=== PATIENT | male | born 1980 | race Caucasian/White ===

== ENCOUNTER 2016-06-21 05:18 | Day surgery (SDC) | payer OTHER ==
[2016-06-20 17:14] VITALS: Ht 182.9 cm; Wt 60.2 kg
[~2016-06-21] VITALS: Ht 182.9 cm; Wt 60.2 kg
[2016-06-21] VITALS (12 sets, daily range): BP systolic 101–125; BP diastolic 57–81; PULSE 50–75; RESP 12–26
[2016-06-21 06:39] LABS: ADD SCAN DIFF NO
[2016-06-21 06:43] LABS: ABNORMAL IP MESSAGE 1; BASOPHIL # 0.1 10^3/ul (0.0-0.1); BASOPHILS % 0.7 % (0.0-2.0); EOSINOPHILS # 0.5 10^3/ul (0.0-0.5); EOSINOPHILS % 7.1 % (0.0-7.0); HEMATOCRIT 39.1 % (42.0-52.0); LYMPHOCYTES # 2.9 10^3/ul (0.8-2.9); MEAN CORPUSCULAR HEMOGLOBIN 19.5 pg (29.0-33.0); MEAN CORPUSCULAR HGB CONC 28.1 g/dl (32.0-37.0); MEAN CORPUSCULAR VOLUME 69.2 fl (82.0-101.0); MONOCYTE # 0.6 10^3/ul (0.3-0.9); MONOCYTES % 8.2 % (0.0-11.0); NEUTROPHIL # 3.3 10^3/ul (1.6-7.5); NEUTROPHILS % 44.7 % (39.0-77.0); PLATELET COUNT 255 10^3/UL (140-415); RED BLOOD COUNT 5.65 10^6/ul (4.70-6.10); RED CELL DISTRIBUTION WIDTH 21.8 % (11.5-14.5); WHITE BLOOD COUNT 7.4 10^3/ul (4.8-10.8)
[2016-06-21] MEDS ORDERED: BUPIVACAINE 0.25%/EPI (SDV) 30 ML INJ ONE ×2 (06:51→08:06)
[2016-06-21] MEDS ORDERED: ROCURONIUM 50 MG INJ ONE (07:00)
[2016-06-21] MEDS ORDERED: CEFAZOLIN 1 GM INJ ONE (07:00)
[2016-06-21] MEDS ORDERED: SEVOFLURANE 15 MIN ONE (07:00)
[2016-06-21] MEDS ORDERED: ONDANSETRON 4 MG INJ ONE (07:00)
[2016-06-21 07:06] LABS: POTASSIUM 3.6 mmol/L (3.5-5.1)
[2016-06-21 07:09] LABS: CALCIUM 9.3 mg/dl (8.4-10.2); CREATININE 0.81 mg/dl (0.61-1.24)
--- NOTE | 2016-06-21 07:20 | HPN ---
Date/Time of Note Date/Time of Note DATE: 06/21/16 TIME: 07:20 Interval H&P Admission Note Pt. seen H&P reviewed: No system changes RUPA POON MD Jun 21, 2016 07:20
[2016-06-21] MEDS ORDERED: PROPOFOL 100 ML ONE (07:25)
[2016-06-21] MEDS ORDERED: BUPIVACAINE 0.25%/EPI (SDV) 30 ML INJ INJ ONE (07:47)
[2016-06-21] MEDS ORDERED: DEXAMETHASONE 4 MG/ML 1 ML INJ ONE (08:09)
[2016-06-21] MEDS ORDERED: NEOSTIGMINE 3 MG/3 ML SYRINGE ONE (08:28)
[2016-06-21] MEDS ORDERED: LIDOCAINE 2% (SDV) 5 ML INJ ONE (08:28)
[2016-06-21] MEDS ORDERED: GLYCOPYRROLATE 0.4 MG INJ ONE (08:28)
[2016-06-21] MEDS ORDERED: EPHEDrine SULFATE 50 MG/5 ML SYG IV PRN (09:00)
[2016-06-21] MEDS ORDERED: OXYCODONE/ACETAMINOPHEN (5/325) TAB PO PRN ×4 (09:00)
[2016-06-21] MEDS ORDERED: FENTAnyl 50 MCG/ML VIAL IV PRN ×3 (09:00)
[2016-06-21] MEDS ORDERED: MEPERIDINE 25 MG INJ IV PRN (09:00)
[2016-06-21] MEDS ORDERED: LABETALOL HCL 20MG INJ IV PRN (09:00)
[2016-06-21] MEDS ORDERED: morphine 2 MG INJ IV PRN (09:00)
[2016-06-21] MEDS ORDERED: ONDANSETRON 4 MG INJ IV PRN ×2 (09:00)
[2016-06-21] MEDS ORDERED: hydrALAzine 20 MG INJ IV PRN (09:00)
--- NOTE | 2016-06-21 10:28 | OPR ---
DATE OF OPERATION: 06/21/2016 PREOPERATIVE DIAGNOSIS: Bilateral inguinal hernia without obstruction. OPERATION PERFORMED: 1. Repair right inguinal hernia with large plug. 2. Repair left inguinal hernia with medium plug. 3. Right inguinal nerve block. 4. Left inguinal nerve block. POSTOPERATIVE DIAGNOSIS: Bilateral direct inguinal hernia without obstruction. SURGEON: Rupa Poon MD ANESTHESIA: General. OPERATIVE REPORT: After satisfactory general anesthesia was achieved, the lower abdomen was prepped and draped in the usual fashion. The right inguinal hernia was repaired first. A 3 cm transverse suprapubic right groin incision was made and carried down to the level of the external oblique apone urosis, which was opened in the direction of its fibers. The cord and nerve were retracted and pres erved. There was a large direct sac. The sac was dissected circumferentially and reduced. The red uction was maintained by placement of an extra-large plug which was secured to healthy fascia circum ferentially with interrupted 3-0 Vicryl suture. Next, the flat portion of the mesh was cut and fash ioned to fit in the floor of the canal as an overlay. It was anchored at the pubic tubercle with 2- 0 Novafil, laterally to inguinal ligament with interrupted 2-0 Novafil, and medially to conjoined te ndon with interrupted 2-0 Novafil. The mesh distal to the cord was reconstituted with a single sutu re of 2-0 Novafil, creating a new internal ring of appropriate size. The cord and nerve were then r eplaced beneath the external oblique, which was closed with a running 3-0 Vicryl. Next, a right inguinal nerve block was performed. 10 mL of 0.25% Marcaine with epinephrine were inj ected into the fascia 1 cm medial and inferior to the right anterior iliac spine. Ten more mL of lo davonte anesthetic was injected directly into the wound. Chichi fascia was closed with interrupted 3-0 Vicryl suture and skin closed with running 4-0 subcuticular Vicryl. Next, the left inguinal hernia was performed. A mirror image incision was made and carried down to the external oblique, which was opened. The cord structures were protected. There was a direct hernia, slightly smaller than the one on the right. This was dissected and reduced. The reduction was maintained by placement of a m edium plug secured circumferentially with interrupted 3-0 Vicryl. The flat portion of the mesh was cut and fashioned to fit in the floor of the canal and was placed identically to that as described a william the right. The cord and nerve were replaced beneath the external oblique, which was closed wit h a running 3-0 Vicryl suture. Next, a left inguinal nerve block was performed. 10 mL of 0.25% Mar pablo with epinephrine were injected into the fascia 1 cm medial and inferior to the left anterior i liac spine. Ten more mL of local anesthetic were injected directly into the wound. Chichi fascia w as closed with interrupted 3-0 Vicryl suture and skin closed with running 4-0 subcuticular Vicryl. OPERATIVE BLOOD LOSS: Less than 10 mL. SPONGE AND NEEDLE COUNTS: Reported as correct x2. The patient tolerated the procedure well and without incident or complication. Dictated By: RUPA POON MD AR/NTS Conf#: [id number] DID#: [id number] CC: Ghulam Duke MD;*EndCC*
== END 2016-06-21 10:20 | disposition home or self-care (01) ==
LOC: SDS 05:18
PROVIDERS: ATTEND Surgery
DX: K40.20 Bilateral inguinal hernia, without obstruction or gangrene, not specified as recurrent (principal)
CPT/HCPCS: 49505; 80048; 85025; C1781; J0690; J1100; J2405; J3010; Z7512; Z7610; J2710

== ENCOUNTER 2016-07-04 14:13 | Day surgery (SDC) | payer OTHER ==
[2016-07-03 15:11] VITALS: Ht 182.9 cm; Wt 59.0 kg
[~2016-07-04] VITALS: Ht 182.9 cm; Wt 59.0 kg
[2016-07-04] VITALS (11 sets, daily range): BP systolic 103–137; BP diastolic 68–94; PULSE 76–90; RESP 14–26
--- NOTE | 2016-07-04 08:49 | HP ---
Date/Time of Note Date/Time of Note DATE: 07/04/16 TIME: 08:45 Assessment/Plan VTE Prophylaxis VTE Prophylaxis Intervention: SCD's Assessment/Plan Chief Complaint/Hosp Course Prolapsing, painful internal hemorrhoids Problems: Assessment/Plan Mr. Romero has painful, prolapsing internal hemorrhoids. We discussed his treatment options including traditional hemorrhoidectomy, a "stapled" hemorrhoidopexy (PPH), and ultrasound-guided hemorrhoid dearterialization with proctoplasty (THD). He has elected to proceed with dearterialization due to the fact it is done without any incisions and has a quicker recovery. Informed consent was obtained after discussing the risks of surgery including bleeding, infection and recurrent hemorrhoids. HPI/ROS Admit Date/Time Admit Date/Time 07/04/16 Hx of Present Illness Mr. Romero reports that he has anal pain and rectal bleeding. He describes a "heavy rectal pain." He has protrusion from his rectum with sitting and he needs to manual reduce it. He has bleeding with BM's and at times with strenuous work. His pain improves when he reduces his hemorrhoids. He has about 4 BM/day and he needs to strain to go. He is scheduled for a hernia repair next month due to his straining. He has never had a colonoscopy and he denies any family history of colorectal cancer. ROS ROS: Constitutional: The patient denied fever and chills. Eyes: The patient complained of blurred vision (distance glasses). Ears/Nose/Throat/Neck: The patient denied hearing loss and dysphagia. Cardiovascular: The patient denied chest pain, chest pressure and palpitations. Respiratory: The patient denied cough and dyspnea. Gastrointestinal: The patient complained of rectal bleeding and rectal pain but denied nausea, vomiting, diarrhea, constipation and rectal itching. Genitourinary/Nephrology: The patient denied dysuria, nocturia and hematuria. Neurologic: The patient denied headache, seizure and tremor. Hematologic/Lymphatic: The patient denied easy bruising, easy bleeding and prolonged bleeding. PMH/Family/Social Past Medical History Medical History: no pertinent history Past Surgical History Past Surgical Hx: no surgical history Family History Significant Family History: no pertinent family hx Social History Alcohol Use: occasionally Smoking Status: Current some day smoker Drug Use: none Exam/Review of Systems Exam Exam Vital Signs: Collected 06/07/2016 09:35 AM By: Carol Rowley Weight 137 lbs Height 6' BMI 18.6 Temp 97.4 F RR HR 84 bpm Sitting BP 122/80 mmHg Right Arm Sitting BP 2 Head Circ SpO2 Waist PE: Constitutional general appearance overall: well nourished and well developed Eyes pupils and irises overall: pupils equal, round, reactive to light and accomodation Ears/Nose/Throat lips/teeth/gingiva overall: benign lips, normal dentition and benign gingiva Neck inspection of neck overall: normal size, normal appearance and no masses Respiratory auscultation overall: breath sounds clear bilaterally respiratory effort/rhythm overall: no retractions and normal rate Cardiovascular auscultation of heart overall: regular rate, normal heart sounds and no murmurs inspection of pedal pulses overall: strong, equal bilaterally extremities overall: no edema and no clubbing Abdomen abdominal exam overall: no tenderness percussion: a normal exam rectal exam inspection: Normal appearing perianal skin overall: good sphincter tone, no masses, no lesions ANOSCOPIC EXAM Grade 3 internal hemorrhoids Musculoskeletal gait and station overall: normal gait and normal station Neurologic mental status overall: alert and oriented Psychiatric orientation/consciousness overall: oriented to person, place and time DUSTIN ELIZABETH MD Jul 04, 2016 08:48
[2016-07-04 15:55] LABS: INR 1.09; PROTIME 14.1 Sec (12.2-14.2); PT RATIO 1.1
[2016-07-04 15:56] LABS: PARTIAL THROMBOPLASTIN TIME 29.8 Sec (25.0-35.0)
[2016-07-04] MEDS ORDERED: PROPOFOL 100 ML ONE (16:47)
[2016-07-04] MEDS ORDERED: metroNIDAZOLE 500 MG/NS (PMX) 100 ML IVPB ONE ×2 (16:49→17:33)
[2016-07-04] MEDS ORDERED: ROCURONIUM 50 MG INJ ONE (16:49)
[2016-07-04] MEDS ORDERED: CEFAZOLIN 1 GM INJ ONE (16:49)
[2016-07-04] MEDS ORDERED: LIDOCAINE 2% (SDV) 5 ML INJ ONE (16:49)
[2016-07-04] MEDS ORDERED: BUPIVACAINE 0.25% (MPF) 10 ML 10 ML VIAL ONE (16:54)
[2016-07-04] MEDS ORDERED: LIDOCAINE 1%/EPI 30 ML INJ ONE (16:54)
[2016-07-04] MEDS ORDERED: FENTAnyl 50 MCG/ML VIAL IV PRN ×3 (17:00)
[2016-07-04] MEDS ORDERED: LABETALOL HCL 20MG INJ IV PRN (17:00)
[2016-07-04] MEDS ORDERED: MEPERIDINE 25 MG INJ IV PRN (17:00)
[2016-07-04] MEDS ORDERED: HYDROmorphONE (0.2 MG/ML) 10ML SYG IV PRN ×3 (17:00)
[2016-07-04] MEDS ORDERED: EPHEDrine SULFATE 50 MG/5 ML SYG IV PRN (17:00)
[2016-07-04] MEDS ORDERED: ONDANSETRON 4 MG INJ IV PRN (17:00)
[2016-07-04] MEDS ORDERED: OXYCODONE/ACETAMINOPHEN (5/325) TAB PO PRN ×2 (17:00→18:30)
[2016-07-04] MEDS ORDERED: hydrALAzine 20 MG INJ IV PRN (17:00)
[2016-07-04] MEDS ORDERED: DIPHENHYDRAMINE 50 MG INJ IV PRN (17:00)
[2016-07-04] MEDS ORDERED: BUPIVACAINE 0.25% (MPF) 30 ML INJ INJ ONE (17:41)
[2016-07-04] MEDS ORDERED: LIDOCAINE 1%/EPI 30 ML INJ INJ ONE (17:42)
--- NOTE | 2016-07-04 18:12 | OPR ---
Date/Time of Note Date/Time of Note DATE: 07/04/16 TIME: 18:10 Operative Report Procedure Date: Jul 04, 2016 Preoperative Diagnosis Grade 3 internal hemorrhoids Rectal bleeding Rectal mucosa prolapse Postoperative Diagnosis (same) Operation Performed 1. Mucosa proctoplasty for prolapse 2. Hemorrhoid ligations using ultrasound guidance (multiple) 3. Proctosigmoidoscopy Surgeon: DUSTIN ELIZABETH MD Anesthesia: general Anesthesiologist: KENDELL RAY Estimated Blood Loss: 0 - 10 ml's Complications: None Pt Condition Post Procedure: stable Disposition: PACU DUSTIN ELIZABETH MD Jul 04, 2016 18:12
--- NOTE | 2016-07-05 05:55 | OPR ---
DATE OF OPERATION: 07/04/2016 PREPROCEDURE DIAGNOSES: 1. Rectal mucosal prolapse. 2. Grade III internal hemorrhoids. 3. Rectal bleeding. POSTPROCEDURE DIAGNOSES: 1. Rectal mucosal prolapse. 2. Grade III internal hemorrhoids. 3. Rectal bleeding. OPERATION PERFORMED: 1. Rectal mucosal proctoplasty for prolapse. 2. Hemorrhoidal ligations using ultrasonic guidance (multiple). 3. Rigid proctosigmoidoscopy. SURGEON: Dr. Dustin Norman. ANESTHESIOLOGIST: Dr. Sinha. TYPE OF ANESTHESIA: General endotracheal anesthesia. INDICATIONS FOR PROCEDURE: Mr. Romero is a 35-year-old gentleman who presented to my office in May of this year with complaints of rectal pain and protrusion. On examination, the patient was found to have prolapsing grade III internal hemorrhoids with rectal mucosal prolapse. The various t reatment options were discussed with him and he elected to proceed with ultrasound-guided hemorrhoid al ligation with mucosal proctoplasty. Informed consent was obtained prior to the procedure. DESCRIPTION OF PROCEDURE IN DETAIL: The patient was brought to the operating room and while on [facility], general endotracheal anesthesia was established. Next, the patient was repositio alexys in the prone jackknife position on the operating room table. Following this, the patient's butt ocks were taped apart using standard technique and a digital rectal examination was performed using a lubricated finger. This examination was normal. Next, a rigid proctosigmoidoscopy was performed to a distance of 12 cm from the anal verge and this revealed a normal appearing rectum. The proctos cope was removed without event. Next, the patient's perineum and perianal skin were prepped and draped in the usual sterile fashion. Following this, an anal block was performed using a combination of 1% lidocaine with epinephrine a nd 0.5% Marcaine without epinephrine. This 50/50% combination of local anesthetic was utilized in s uch a fashion as to infiltrate the subcutaneous tissue circumferentially at the anal verge. Once ma ximum anal relaxation was achieved, the Delatorre retractor was utilized to examine the patient's anal canal and distal rectum in more detail. The patient was found to have grade III internal hemorrhoid s in the left lateral, right anterior and right posterior quadrants with rectal mucosal prolapse. T he Delatorre retractor was removed and a lubricated THD Doppler equipped anoscope was inserted in the p atient's anus. Using this anoscope, the Doppler signal identified a hemorrhoidal artery in the righ t lateral quadrant 3 to 4 cm proximal to the dentate line. Next, a 2-0 Vicryl suture was then util ized to suture ligate the hemorrhoidal artery and the rectal wall was identified by the THD anoscope . The same procedure was then repeated in the right anterior, left anterior, left lateral, left pos terior and right posterior quadrants. In each of these quadrants the THD Doppler equipped anoscope was utilized to identify the hemorrhoidal artery within the rectal wall 3 to 4 cm proximal to the de ntate line where it was suture ligated with a 2-0 Vicryl suture. Once all 6 arteries were identifie d and ligated, the THD anoscope was removed. Next, the Delatorre retractor was again placed within the patient's anus and in the left lateral quadrant the redundant and prolapsing rectal mucosa was iden tified. A tethering stitch was placed approximately 4 to 5 cm proximal to the dentate line and then the same suture was utilized to place a running stitch to gather the redundant mucosa distally towa rds but not to include the dentate line. This was then sewed to the tethering stitch, thus pulling the redundant mucosa inward and repositioned the dentate line in the normal anatomical position. e same procedure was then repeated in the right anterior and right posterior quadrants. Once all 3 quadrants of hemorrhoidal prolapse and mucosal redundancy were corrected, the dentate line was in th e normal anatomical position circumferentially, thus indicating complete correction of rectal mucosa l prolapse. Each suture line was then examined for bleeding and when none was noted, the procedure was complete. The Delatorre retractor was removed and additional local anesthetic was injected at the anal verge circumferentially in the subcutaneous tissue, again using the combination of lidocaine a nd Marcaine. Dry gauze applied to the patient's perianal skin and secured with paper tape. The patient was then repositioned in the supine position on the transportation gurney. General anes thetic was discontinued and the patient was extubated in the operating room without complication. H e was then transferred to recovery room in stable condition. Following the procedure, the patient w as given standard post-anorectal surgery convalesce instructions as well as instructions to follow u p with Dr. Norman in 1 week following discharge. The patient was given prescriptions for Toradol and [place] for pain. Dictated By: DUSTIN ALBARRAN/RADHA Conf#: [id number] DID#: [id number]
== END 2016-07-04 20:50 | disposition home or self-care (01) ==
LOC: SDS 14:13
PROVIDERS: ATTEND Colon & Rectal Surgery
DX: K64.2 Third degree hemorrhoids (principal); K62.3 Rectal prolapse
CPT/HCPCS: 85610; 85730; J0690; J2405; J3010